=== PATIENT | female | born 1955 | race Caucasian/White ===

== ENCOUNTER 2016-11-24 15:49 | Emergency (ER) | payer BC ==
[2016-11-24 11:45] LABS: BASOPHILS 0.8 %; BASOPHILS ABSOLUTE 0.05 10/3/uL (0.0-0.16); EOSINOPHILS 3.5 %; EOSINOPHILS ABSOLUTE 0.23 10/3/uL (0.0-0.53); ER CBC TAT 0 Hrs 05 Mins; HEMATOCRIT 40.1 % (36.0-48.0); HEMOGLOBIN 13.9 g/dL (12.0-16.0); LYMPHOCYTES ABSOLUTE 1.95 10/3/uL (0.67-4.30); MEAN CORPUS HGB CONC 34.7 g/dL (32.0-36.0); MEAN CORPUSCULAR HEMOGLOB 32.9 pg (26.0-34.0); MEAN CORPUSCULAR VOLUME 94.8 fL (80-100); MEAN PLATELET VOLUME 9.2 fL (9.2-13.0); MONOCYTES 8.5 %; MONOCYTES ABSOLUTE 0.55 10/3/uL (0.21-1.20); NEUTROPHILS 57.2 %; NEUTROPHILS ABSOLUTE 3.71 10/3/uL (2.02-8.40); PLATELET COUNT 306 10/3/uL (150-400); RBC DISTRIBUTION WIDTH 12.5 % (12.0-16.0); RED CELL COUNT 4.23 10/6/uL (4.0-5.6); WHITE BLOOD CELLS 6.5 10/3/uL (4.5-10.5)
[2016-11-24 11:46] LABS: MANUAL DIFF NO %
[2016-11-24 11:53] LABS: PARTIAL THROMBO TIME 26.8 SEC (22.5-37.2); PROTIME (NOT ORD) 13.4 SEC (12.0-14.5)
[2016-11-24 11:59] LABS: BUN (BLOOD UREA NITROGEN) 14 MG/DL (6-23); CALCIUM, SERUM 9.1 MG/DL (8.5-10.4); CHEST PAIN PROFILE TAT 0 Hrs 19 Mins; CHLORIDE, SERUM 103 MMOL/L (96-112); CO2 (CARBON DIOXIDE) 28 MMOL/L (24-34); CREATININE 0.78 MG/DL (0.55-1.02); GFR AFRICAN AMERICAN 94 ML/MIN (>=60); GFR NON AFRICAN AMERICAN 81 ML/MIN (>=60); GLUCOSE, SERUM 98 MG/DL (60-99); POTASSIUM, SERUM 4.4 MMOL/L (3.5-5.3); SODIUM, SERUM 139 MMOL/L (135-148); TROPONIN I <0.02 NG/ML (<0.05)
[~2016-11-24 15:49] MED LIST: AMB10 PO; ASA5GR PO; ASAB PO; BRILINTA90 MG PO; COQ-10200 MG OR; COREG3 PO; CRESTOR40 MG PO; EFFIENT10 PO; FLEX PO; FLEXERIL PO; FLUOXETINE PO; HALF81 PO; IMDUR30 PO; IMDUR60 PO; IRON325 MG PO; LIPITOR10 PO; MAXIMUM D3 PO; NIACIN 500 PO; NITROMIST400 MCG SL; NITROSTAT0.4 MG SL; PAX20 PO; PLAVIX PO; PR25 PO; PRIN2.5 PO; PROTONIX PO; PROZ10 PO; RETIN A TOP; RETIN-A0.025 % TOP; SUCR PO; TOPXL25 PO; ULTRAM50 PO; VISINE0.05 % OPH; VITC500 PO; ZANTAC300 MG PO; ZOCOR20 PO; ZOCOR40 PO; ZOCOR80 MG PO; [UNRECOGNIZED DRUG - CODE] TOP; [UNRECOGNIZED DRUG - OTHER] T
[2016-12-22] MEDS ORDERED: PLAVIX PO (14:55)
[2016-12-26] MEDS ORDERED: SPIRO25 PO (16:03)
[2016-12-26] MEDS ORDERED: ZOCOR80 MG PO (16:03)
[2016-12-26] MEDS ORDERED: ASA5GR PO (20:31)
== END 2016-11-24 16:46 | disposition home or self-care (01) ==
LOC: ER 15:49
PROVIDERS: Hospitalist
DX: R07.9 Chest pain, unspecified (principal); Z98.61 Coronary angioplasty status; Z88.2 Allergy status to sulfonamides; Z88.8 Allergy status to other drugs, medicaments and biological substances; Z79.82 Long term (current) use of aspirin; Z79.899 Other long term (current) drug therapy
CPT/HCPCS: 71020; 80048; 83735; 84484; 85025; 85610; 85730; 93005; 99285; A9270-GY

== ENCOUNTER 2016-12-27 13:44 | Emergency (ER) | payer BC ==
[~2016-12-27 13:44] MED LIST changes: +SPIRO25 PO
== END 2016-12-27 16:00 | disposition home or self-care (01) ==
LOC: ER 13:44
DX: I97.648 Postprocedural seroma of a circulatory system organ or structure following other circulatory system procedure (principal); I10 Essential (primary) hypertension; J45.909 Unspecified asthma, uncomplicated; I25.10 Atherosclerotic heart disease of native coronary artery without angina pectoris; Z87.891 Personal history of nicotine dependence; Z88.2 Allergy status to sulfonamides; Z88.8 Allergy status to other drugs, medicaments and biological substances; Z79.82 Long term (current) use of aspirin; Z79.899 Other long term (current) drug therapy
CPT/HCPCS: 99282